=== PATIENT | female | born 1950 | race Caucasian/White ===

== ENCOUNTER 2019-05-28 07:12 | Outpatient (CLI) | payer MEDICARE ==
--- NOTE | 2019-05-30 05:57 | Ultrasound Report ---
Reason: RUQ PX Procedure Date: 05/28/2019 Accession Number: [id number] / [id number] Procedure: US - Abdomen Limited CPT Code: Final Report FULL RESULT: EXAM: ABDOMEN ULTRASOUND LIMITED, RUQ EXAM DATE: 05/28/2019 08:01 AM. CLINICAL HISTORY: RUQ PX. COMPARISON: None. TECHNIQUE: Real-time scanning was performed with static images obtained. FINDINGS: Liver: Normal in size and echotexture. 14.7 cm. Main portal vein flow: Hepatopetal. Gallbladder: Cholelithiasis. No wall thickening or pericholecystic fluid. Biliary System: CBD measures 4 mm. No intrahepatic or extrahepatic ductal dilatation. Other: None. IMPRESSION: Cholelithiasis, but no evidence of acute cholecystitis or biliary obstruction. RADIA
== END 2019-05-28 07:13 | disposition home or self-care (01) ==
LOC: DI 07:12
PROVIDERS: ATTEND Internal Medicine
DX: K80.20 Calculus of gallbladder without cholecystitis without obstruction (principal)
CPT/HCPCS: 76705

== ENCOUNTER 2019-12-09 09:50 | Outpatient (CLI) | payer MEDICARE | END 2019-12-09 09:51 | disposition home or self-care (01) | LOC: LAB 09:50 | PROVIDERS: ATTEND Surgery | DX: Z01.818 Encounter for other preprocedural examination (principal); Z20.828 Contact with and (suspected) exposure to other viral communicable diseases; K80.20 Calculus of gallbladder without cholecystitis without obstruction | CPT/HCPCS: 93005; U0004; 81599 ==

== ENCOUNTER 2021-01-28 07:30 | Day surgery (SDC) | payer MEDICARE ==
[2021-01-28] MEDS ORDERED: LACTATED RINGERS 1,000 ML IV ONE ×2 (07:33→11:00)
[2021-01-28] MEDS ORDERED: ONDANSETRON 4 MG/2 ML VIAL ONE (08:40)
[2021-01-28] MEDS ORDERED: NALOXONE 0.4 MG/ML VIAL IVP PRN (08:40)
[2021-01-28] MEDS ORDERED: KETOROLAC 30 MG/ML VIAL ONE (08:40)
[2021-01-28] MEDS ORDERED: DEXAMETHASONE 4 MG/ML VIAL ONE ×2 (08:40→10:03)
[2021-01-28] MEDS ORDERED: ROCURONIUM 50 MG/5 ML VIAL ONE (08:40)
[2021-01-28] MEDS ORDERED: PROPOFOL 200 MG/20 ML VIAL IVP ONE (08:40)
[2021-01-28] MEDS ORDERED: fentaNYL 100 MCG/2 ML VIAL IVP PRN (08:40)
[2021-01-28] MEDS ORDERED: MORPHINE 2 MG/ML CARPUJECT IVP PRN (08:40)
[2021-01-28] MEDS ORDERED: fentaNYL 100 MCG/2 ML VIAL ONE (08:40)
[2021-01-28] MEDS ORDERED: LIDOCAINE-MPF 2% 5 ML VIAL ONE (08:40)
[2021-01-28] MEDS ORDERED: ePHEDrine 50 MG/ML VIAL IVP PRN (08:40)
[2021-01-28] MEDS ORDERED: ONDANSETRON 4 MG/2 ML VIAL IVP PRN ×2 (08:40→10:59)
[2021-01-28] MEDS ORDERED: ATROPINE ABBOJECT 1 MG/10 ML SYRINGE IVP PRN (08:40)
--- NOTE | 2021-01-28 08:40 | ANESTHESIA ---
Pre-Anesthesia VS, & Labs - Diagnosis cholecystitis - Procedure lap ta Vital Signs: Temp Pulse Resp BP Pulse Ox 35.8 C L 76 14 130/79 98 01/28/21 07:35 01/28/21 07:35 01/28/21 07:35 01/28/21 07:35 01/28/21 07:35 Height: 5 ft 5 in Weight (kg): 99 kg Body Mass Index: 36.3 BMI Classification: Obese - NPO >8 hours - Is Patient ?: No Home Medications and Allergies FLUoxetine [PROzac] 5 mg PO DAILY 12/09/19 Levothyroxine [Synthroid] 112 mcg PO QDAC 12/09/19 Lisinopril/Hydrochlorothiazide [Lisinopril-Hctz 20-25 mg Tab] 1 each PO DAILY 12/09/19 Omeprazole 20 mg PO DAILY 12/09/19 Simvastatin 40 mg PO QPM 12/09/19 estradioL [Estradiol] 0.5 mg PO DAILY 12/09/19 Allergies/Adverse Reactions: Allergies Allergy/AdvReac Type Severity Reaction Status Date / Time Latex, Natural Rubber AdvReac Rash Verified 12/09/19 10:09 Anes History & Medical History - Anesthetic History Anesthesia Complications: reports: No previous complications Family history of Anesthesia Complications: Denies Family history of Malignant Hyperthermia: Denies - Medical History Cardiovascular: reports: Hypertension, High cholesterol Pulmonary: reports: None Gastrointestinal: reports: GERD Musculoskeletal: reports: Osteoarthritis Endocrine/Autoimmune: reports: HyPOthyroidism Skin: reports: None - Surgical History Gynecologic: reports: Hysterectomy, Oophrectomy Exam General: Alert, Oriented x3, Cooperative Dental: WNL Mouth Openin Fingerbreadth Neck Mobility: Normal Mallampati classification: II Thyromental Distance: 4-6 cm Respiratory: Lungs clear Cardiovascular: Regular rate Plan Anesthesia Type: General Consent for Procedure(s) Verified and Reviewed: Yes Code Status: Attempt Resuscitation ASA classification: 2-Mild systemic disease Is this case an emergency?: No
[2021-01-28] MEDS ORDERED: BUPIVACAINE 0.5% PF 30 ML VIAL ONE (08:49)
[2021-01-28] MEDS ORDERED: LIDOCAINE MPF 2%-EPI 1:200000 20 ML VIAL ONE (08:49)
[2021-01-28] MEDS ORDERED: BUPIVACAINE 0.5% PF 30 ML VIAL INFIL ONE ×2 (08:56)
[2021-01-28] MEDS ORDERED: LIDOCAINE 2%-EPI 1:100000 20 ML MDV SUBQ ONE ×2 (08:57)
[2021-01-28] MEDS ORDERED: LACTATED RINGERS 1,000 ML IV SCH (09:00)
[2021-01-28] MEDS ORDERED: ceFAZolin 1 GM VIAL ONE (10:00)
[2021-01-28] MEDS ORDERED: SUGAMMADEX 200 MG/2 ML VIAL IVP ONE (10:31)
--- NOTE | 2021-01-28 10:56 | OPERATIVE REPORT ---
Operative Report - General Procedure Date: 01/28/21 Planned Procedure: Scopic cholecystectomy Pre-Op Diagnosis: Cholelithiasis and cholecystitis Procedure Performed: Laparoscopic cholecystectomy and umbilical hernia repair Post Op Diagnosis: Cholelithiasis and cholecystitis, moderate umbilical hernia-2 cm - Procedure Note Primary Surgeon: Jocelyne Anesthesia Provider: GWEN Lewis Pathology: Gall bladder in formalin Estimated Blood Loss (mL): 100 Indications: Symptomatic cholelithiasis Findings: Densely scarred gall bladder with sludge and numerous stones 2 cm umbilical hernia Complications: None apparent - Other Other Information/Narrative: After obtaining informed consent the patient is brought to the operating room and placed in the supine position on the operating table. Following successful induction of general endotracheal anesthesia, appropriate padding of all bony prominences, and placement of appropriate monitors, the abdomen was prepped and draped in the standard surgical fashion. A timeout was held per scope protocol. All elements of the surgical safety checklist were followed before, during, and after the procedure. Following infiltration with local anesthetic to create a field block, an incision was created inferior to the umbilicus and carried down through the skin and subcutaneous tissue to reveal the fascia below. 2-0 Vicryl retention sutures were placed on either side of the midline and the abdomen was entered under direct vision using a 15 blade scalpel. A 10 mm blunt Burciaga balloon trocar was placed in the abdominal cavity and it was insufflated to 15 mmHg pressure. The patient was placed in reverse Trendelenburg position with the left side rotated toward the floor. A second trocar, 5 mm, was placed in the midepigastrium under direct vision and after anesthetization of the surrounding skin.A third trocar, also 5 mm was placed in the right upper quadrant for retraction of the gallbladder and a fourth 1 just medial to that as a working port as well. The gallbladder was examined. It was adherent to the surrounding structures including the omentum and the right colon. These structures were carefully dissected free from the surface of the gallbladder using a mixture of blunt and sharp dissection. The fundus of the gallbladder was then grasped and elevated up over the liver revealing the cholecysto hepatoduodenal ligament. The neck of the gallbladder was retracted laterally and the cystic duct and artery were carefully identified. The common duct was visualized but not skeletonized. The cystic duct was clipped 3 times proximally and once distally and divided, the cystic artery was clipped twice proximally, once distally, and divided. The gallbladder was then liberated from its bed in the liver using cautery. It was placed in an Endo Catch bag and removed via the umbilical port with a camera in the epigastric position. There was significant adhesion in the bed of the liver and oozing from the bed of the liver. Two 4 x 8 pieces of Surgicel were placed in the liver bed. Appeared of observation was undertaken and then the liver bed reexamined. It was clean and dry. Tthe abdomen was irrigated with warm saline solution and aspirated free of all fluid and particulate matter. The trochars were then removed under direct vision and the abdomen desufflated. The Umbilical hernia was addressed first.This was done by grasping the edges of the fascia and closing them primarily with interrupted #1 PDS suture. The peripheral sutures of Vicryl were used as retentions for the primary repair and these were closed over top. The skin incisions were closed with clips. All sponge, needle, and instrument counts were correct at the conclusion of the case. The patient was allowed awaken from anesthesia without difficulty and taken to the postanesthesia care unit in good condition.
[2021-01-28] MEDS ORDERED: ACETAMINOPHEN 325 MG TABLET PO PRN (10:59)
[2021-01-28] MEDS ORDERED: IBUPROFEN 600 MG TABLET PO PRN (10:59)
[2021-01-28] MEDS ORDERED: oxyCODONE 5 MG TABLET PO PRN (10:59)
[2021-01-28] MEDS: HYDROmorphone 0.5 MG/0.5 ML SYRINGE IVP PRN ×3 (11:07→11:30)
[2021-01-28] MEDS ORDERED: HYDROmorphone 1 MG/ML CARPUJECT ONE (11:12)
[2021-01-28 12:01] VITALS: BP 144/64
[2021-01-28] MEDS ORDERED: ACETAMINOPHEN 325 MG TABLET PO ONE ×2 (12:15→12:18)
--- NOTE | 2021-01-28 15:34 | ANESTHESIA POST OP EVALUATION ---
Anesthesia Post Eval - Post Anesthesia Eval Vitals: Last Vital Signs Temp 36.2 C L 01/28/21 11:50 Pulse 70 01/28/21 11:50 Resp 12 01/28/21 11:50 BP 144/64 H 01/28/21 11:50 Pulse Ox 92 01/28/21 11:50 CV Function Including HR & BP: Stable Pain Control: Satisfactory Nausea & Vomiting: Negative Mental Status: Baseline Respiratory Status: Airway Patent Hydration Status: Satisfactory Anesthesia Complications: None
== END 2021-01-28 07:31 | disposition home or self-care (01) ==
LOC: SDS 07:30
PROVIDERS: ATTEND Surgery
PROC: 0FT44ZZ Resection of Gallbladder, Percutaneous Endoscopic Approach (ICD-10-PCS; principal; 2021-01-28 08:45)
DX: K80.10 Calculus of gallbladder with chronic cholecystitis without obstruction (principal); K42.9 Umbilical hernia without obstruction or gangrene; I10 Essential (primary) hypertension; E78.00 Pure hypercholesterolemia, unspecified; E03.9 Hypothyroidism, unspecified; K21.9 Gastro-esophageal reflux disease without esophagitis; F41.9 Anxiety disorder, unspecified; F41.0 Panic disorder [episodic paroxysmal anxiety]; E66.9 Obesity, unspecified; Z68.36 Body mass index [BMI] 36.0-36.9, adult; Z79.899 Other long term (current) drug therapy
CPT/HCPCS: 47562; A9270; J1170; J7120